=== PATIENT | female | born 1980 | race Caucasian/White ===

== ENCOUNTER 2017-10-14 19:50 | Emergency (ER) | payer OTHER ==
[~2017-10-14 19:50] MED LIST: MEDR4PAK3 PO; TRIA.1%T EX; Z.0.NO CURRENT MEDS
[2017-10-14 19:53] VITALS: BP 164/88; PULSE 100; RESP 16; TEMP 98.6; O2SAT 99
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
[2017-10-14 22:07] VITALS: BP 165/103; PULSE 88; RESP 18; O2SAT 98
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
[2017-10-14] MEDS ORDERED: IBUP1TAB7 PO (22:18)
[2017-10-14] MEDS ORDERED: BACL10TA PO (22:18)
[2017-10-14] MEDS ORDERED: ORPHENADRINE INJ 60 MG/2 ML AMP IM ONE (22:30)
[2017-10-14] MEDS ORDERED: KETOROLAC TROMETHAMINE 60 MG/2 ML (IM) VIAL IM ONE (22:30)
== END 2017-10-14 22:38 | disposition home or self-care (01) ==
LOC: NEPD 19:50
DX: S39.012A Strain of muscle, fascia and tendon of lower back, initial encounter (principal); S16.1XXA Strain of muscle, fascia and tendon at neck level, initial encounter; M79.602 Pain in left arm; M79.605 Pain in left leg; M41.9 Scoliosis, unspecified; V49.40XA Driver injured in collision with unspecified motor vehicles in traffic accident, initial encounter; Z79.899 Other long term (current) drug therapy
CPT/HCPCS: 72125; 96372; 99285; J1885; J2360